=== PATIENT | female | born 1960 ===

== ENCOUNTER 2018-10-30 14:50 | Emergency (ER) | payer BC ==
[2018-10-30 15:47] VITALS: BP 144/83
--- NOTE | 2018-10-30 16:10 | UC ---
Shoulder Pain HPI - HPI Summary HPI Summary: Pt presents with c/o gradual worsening of left shoulder pain. Pt states that in January 2018 she was shoveling her driveway and noticed that her left shoulder began to hurt. From that time her left shoulder pain has worsened and ROM has diminished. Pt does not have PCP. - History of Current Complaint Chief Complaint: UCUpperExtremity Stated Complaint: L ARM INJ Time Seen by Provider: 10/30/18 15:45 Hx Obtained From: Patient ?: No Onset/Duration: Gradual Onset, Lasting Weeks, Worse Since - onset Timing: Constant Severity Initially: Mild Severity Currently: Moderate Location Of Pain: Is Discrete @ - left shoulder, Radiates To - left upper back and upper arm Pain Intensity: 3 Character: Dull, Aching, Stiffness, Burning Aggravating Factor(s): Movement Alleviating Factor(s): Rest Associated Signs And Symptoms: Positive: Weakness Related History: Dominant Hand Right - Risk Factors Non-Orthopedic Risk Factor: Negative DVT Risk Factors: Negative Septic Arthritis Risk Factor: Negative - Allergies/Home Medications Allergies/Adverse Reactions: Allergies Allergy/AdvReac Type Severity Reaction Status Date / Time Penicillins Allergy Hives Verified 10/30/18 15:47 Home Medications: Home Medications Magnesium Carbonate/Asafetida [Dewee's Carminative Liquid] 250 mg PO 10/30/18 [ History] Melatonin [Meladox] 1.5 mg PO 10/30/18 [History] PMH/Surg Hx/FS Hx/Imm Hx Previously Healthy: Yes - Surgical History Surgical History: None - Family History Known Family History: Positive: Cardiac Disease - Social History Occupation: Employed Full-time Lives: With Family Alcohol Use: Weekly Substance Use Type: None Smoking Status (MU): Never Smoked Tobacco Have You Smoked in the Last Year: No Review of Systems All Other Systems Reviewed And Are Negative: Yes Constitutional: Positive: Negative Skin: Positive: Negative Eyes: Positive: Negative ENT: Positive: Negative Respiratory: Positive: Negative Cardiovascular: Positive: Negative Gastrointestinal: Positive: Negative Genitourinary: Positive: Negative Motor: Positive: Decreased ROM - left shoulder Neurovascular: Positive: Negative Musculoskeletal: Positive: Arthralgia, Decreased ROM, Myalgia Neurological: Positive: Negative Psychological: Positive: Negative Is Patient Immunocompromised?: No Physical Exam - Summary Physical Exam Summary: Pt presents with c/o worsening left shoulder pain and stiffness that began in January of 2018 after shoveling heavy snow. Pt now states that her ROM is diminishing and pain worsening. Triage Information Reviewed: Yes Appearance: Well-Appearing Vital Signs: Initial Vital Signs Temp 98.0 F 10/30/18 15:40 Pulse 71 10/30/18 15:40 Resp 18 10/30/18 15:40 BP 144/83 10/30/18 15:40 Pulse Ox 99 10/30/18 15:40 Vital Signs Reviewed: Yes Eye Exam: Normal ENT: Positive: Hearing grossly normal Dental Exam: Normal Neck exam: Normal Neck: Positive: Supple Respiratory: Positive: No respiratory distress Musculoskeletal: Positive: ROM Limited @ - left shoulder Neurological Exam: Normal Psychological Exam: Normal Skin Exam: Normal Diagnostics - Radiology No standard instances Radiology Interpretation Completed By: Radiologist - FINDINGS: The bones are in normal alignment. No fracture is seen. The glenohumeral and acromioclavicular joint spaces appear maintained. IMPRESSION: NO EVIDENCE FOR FRACTURE. Shoulder Course/Dx - Differential Dx/Diagnosis Differential Diagnosis/HQI/PQRI: Arthritis, Bursitis, Tendonitis Provider Diagnosis: Left shoulder pain Discharge - Sign-Out/Discharge Documenting (check all that apply): Patient Departure All imaging exams completed and their final reports reviewed: Yes - Discharge Plan Condition: Stable Disposition: HOME Patient Education Materials: Shoulder Pain (ED) Referrals: No Primary Care Phys,NOPCP [Primary Care Provider] - [facility] [place]] - If Needed Galen Barrow MD [Medical Doctor] - As Soon As Possible - Billing Disposition and Condition Condition: STABLE Disposition: Home
== END 2018-10-30 16:51 | disposition home or self-care (01) ==
LOC: UCCORT 14:50
DX: M25.512 Pain in left shoulder (principal)
CPT/HCPCS: 99201; G0463